=== PATIENT | female | born 1990 | race Caucasian/White ===

== ENCOUNTER 2017-04-07 17:27 | Emergency (ER) | payer OTHER ==
[2017-04-07] MEDS ORDERED: TORADOL 30 MG VIAL ONE (17:33)
[2017-04-07] MEDS ORDERED: NS 1000 ML 1,000 ML ONE ×2 (17:33→18:43)
[2017-04-07 17:37] VITALS: BP 166/105; BMI 35.5
[2017-04-07] MEDS ORDERED: ZOFRAN INJ 4 MG VIAL ONE (17:43)
[2017-04-07] MEDS ORDERED: MORPHINE SULFATE INJ 4 MG ONE (17:43)
[2017-04-07] MEDS ORDERED: MORPHINE SULFATE INJ 4 MG IVP ONE (17:48)
[2017-04-07] MEDS ORDERED: ZOFRAN INJ 4 MG VIAL IVP ONE (17:48)
[2017-04-07] MEDS ORDERED: TORADOL 30 MG VIAL IVP ONE (17:48)
[2017-04-07] MEDS ORDERED: NS 1000 ML 1,000 ML IV ONE ×2 (17:48→19:27)
--- NOTE | 2017-04-07 18:31 | DR.PFBACK ---
HPI - Time Seen Time seen: 17:35 - PCP Primary Care Physician: JANE GREEN - Complaint Chief Complaint Doctor Comments: Patient with a history of kidney stones; last one a few years ago. She admits to right flank pain Pain is sharp 05/11 Chief Complaint:: PATIENT STATED THAT SHE STARTED HURTING YESTERDAY BUT IT BECAME WORSE TODAY - Source History Provided: Patient - Mode of Arrival Mode of Arrival: Ambulatory - Timing Onset of Chief Complaint: 04/05/17 PMH - Past Surgical History Past Surgical History: Yes - Family History History of Family Medical Conditions: No - Social Does patient currently use any type of tobacco product: No Have you used tobacco products in the last 12 months: No Type of Tobacco Use: None Does any household member use tobacco: No Alcohol Use: None - infectious screening In the last 2 months have you had wt loss of >10#?: NO Have you had fever, night sweats or hemotysis?: No Have you traveled outside the country in the last 6 months?: No Isolation: Standard ROS (Ped) - Review of Systems Eyes: No Symptoms Reported ENTM: No Symptoms Reported Respiratoy: No Symptoms Reported Cardiovascular: No Symptoms Reported Gastrointestinal/Abdominal: No Symptoms Reported Genitourinary: No Symptoms Reported Neurological: No Symptoms Reported Musculoskeletal: Back Pain (right flank) Integumentary: No Symptoms Reported Hematologic/Lymphatic: No Symptoms Reported Endocrine: No Symptoms Reported Psychiatric: No Symptoms Reported All Other Systems: Reviewed and Negative PE - Vitals Vital Signs: Temp Pulse Resp BP Pulse Ox 04/07/17 17:32 98.2 F 70 20 166/105 100 10/21/12 18:28 139/96 - General General Appearance: Alert, Anxious - Head Head Exam: Normal Inspection, Atraumatic - Eyes Eye exam: Normal Appearance, PERRL, EOMI - ENT ENT Exam: Normal Exam - Chest Chest Inspection: Normal Inspection - Respiratory Respiratory Exam: Normal Lung Sounds Bilat Respiratory Exam: Bilateral Clear to Auscultation - Cardiovascular Cardiovascular Exam: Regular Rate, Normal Rhythm - Abdominal Exam Abdominal Exam: Normal Inspection Abdominal Tenderness: RLQ - Genitourinary External Exam: Female: Deferred : Speculum Exam (Female): Deferred : Bimanual Exam (female): Normal Bimanual exam - Extremities Extremities Exam: Normal Inspection, Full ROM - Back Back Exam: Normal Inspection, Full ROM - Neurological Neurological Exam: Alert, Oriented X3, CN II-XII Intact - Psychiatric Psychiatric Exam: Normal Affect - Skin Skin Exam: Warm, Dry, Intact Course - Reevaluation 1st: Improved ROR - Labs Reviewed Laboratory Results Reviewed?: Yes (UA: hematuria) Laboratory: Specimen Type Clean catch urine 04/07/17 18:19 Urine Color Yellow (YELLOW) 04/07/17 18:19 Urine Appearance Hazy (CLEAR) 04/07/17 18:19 Urine pH 6.0 (5.0 - 8.0) 04/07/17 18:19 Ur Specific [place] 1.025 (1.000-1.030) 04/07/17 18:19 Urine Protein 2+ (NEGATIVE) 04/07/17 18:19 Urine Glucose (UA) Negative (NEGATIVE) 04/07/17 18:19 Urine Ketones Negative (NEGATIVE) 04/07/17 18:19 Urine Occult Blood 5+ (NEGATIVE) 04/07/17 18:19 Urine Nitrite Negative (NEGATIVE) 04/07/17 18:19 Urine Bilirubin Negative (NEGATIVE) 04/07/17 18:19 Urine Urobilinogen 2+ (NORMAL) 04/07/17 18:19 Ur Leukocyte Esterase 1+ (NEGATIVE) 04/07/17 18:19 Urine RBC Tntc /HPF (NEGATIVE) 04/07/17 18:19 Urine WBC 0-3 /HPF (NEGATIVE) 04/07/17 18:19 Ur Squamous Epith Cells Many /HPF (NEGATIVE) 04/07/17 18:19 Calcium Oxalate Crystal Few /HPF (NEGATIVE) 04/07/17 18:19 Urine Bacteria Trace /HPF (NEGATIVE) 04/07/17 18:19 Ur Culture Indicated? No/not indicated 04/07/17 18:19 - XRAY XRAY Interpreted by: Radiologist (Mild left sided hydroureteronephrosis secondary to an obsttructing 2mm UVJ stone) - Diagnosis Discharge Problem: Hydroureteronephrosis - Discharge Plan Condition: Stable - Follow ups/Referrals Follow ups/Referrals: SHANNON GREEN [Primary Care Provider] - 3 days - Instructions
[2017-04-07 18:41] LABS: BILIRUBIN,URINE NEGATIVE (NEGATIVE); BLOOD/HEMOGLOBIN,URINE 5+ (NEGATIVE); GLUCOSE, URINE NEGATIVE (NEGATIVE); KETONES,URINE NEGATIVE (NEGATIVE); LEUKOCYTE ESTERASE ,URINE 1+ (NEGATIVE); NITRITES,URINE NEGATIVE (NEGATIVE); PROTEIN,URINE 2+ (NEGATIVE); UROBILINOGEN,URINE 2+ (NORMAL)
[2017-04-07 18:57] LABS: APPEARANCE,URINE HAZY (CLEAR); BACTERIA,URINE TRACE /HPF (NEGATIVE); CALCIUM OXALATE CRYSTALS,UR FEW /HPF (NEGATIVE); COLOR,URINE YELLOW (YELLOW); RBC,URINE TNTC /HPF (NEGATIVE); SQUAMOUS EPITHELIAL CELL,UR MANY /HPF (NEGATIVE)
--- NOTE | 2017-04-07 19:58 | CT ---
CT abdomen and pelvis without contrast Indication: Flank pain, hematuria. Comparison: 10/21/2012 Technique: CT images of the abdomen and pelvis were obtained without contrast. Automatic exposure con trol was utilized. Findings: No acute skeletal abnormality. The lung bases are clear. Within noncontrast limitations, the liver, gallbladder, spleen, stomach, duodenum, pancreas, and adre nals are unremarkable. There is mild left-sided hydroureteronephrosis associated with an obstructing 2 mm stone at the urete rovesicular junction. No right-sided urinary stone or obstruction. No significant bowel thickening or dilatation of the lower GI tract. The uterus and ovaries are noted . An intrauterine device appears grossly normal in position. The urinary bladder and rectum are unrem arkable. Impression: Mild left-sided hydroureteronephrosis secondary to an obstructing 2 mm UVJ stone. Reported By:
== END 2017-04-07 20:16 | disposition home or self-care (01) ==
LOC: ER 17:27
DX: N13.30 Unspecified hydronephrosis (principal)
CPT/HCPCS: 74176; 81001; 96365; 96367; 96374; 96375; 99283; A4222; J1885; J2270; J2405